=== PATIENT | male | born 1980 | race Caucasian/White ===

== ENCOUNTER 2025-03-03 12:21 | Emergency (ER) | payer OTHER, SELFPAY ==
[2025-03-03 12:29] VITALS: BP 151/88
[2025-03-03 12:44] LABS: % Basophils 0.4 % (0-2); % Eosinophils 1.2 % (0-6); % Immature Granulocytes 0.2 % (0-0.5); % Lymphocytes 27.4 % (20.5-51.1); % Monocytes 12.1 % (1.7-9.3); % Neutrophils 58.7 % (42.2-75.2); Absolute Eosinophils 0.1 10^3/uL (0-0.7); Absolute Lymphocytes 1.4 10^3/uL (1.2-3.4); Absolute Monocytes 0.6 10^3/uL (0.1-0.6); Absolute Neutrophils 3.1 10^3/uL (1.4-6.5); Hematocrit 43.7 % (39.0-52.0); Hemoglobin 14.8 g/dL (13.0-18.0); Mean Corp Hgb Conc. 33.9 g/dL (33.0-37.0); Mean Corpuscular Hgb 30.6 pg (27.0-31.0); Mean Corpuscular Volume 90.5 fL (80.0-94.0); Mean Platelet Volume 10.8 fL (7.4-10.4); Nucleated Red Blood Cells % 0 % (-); Platelet Count 212 10^3/uL (130-400); Red Blood Cell Count 4.83 10^6/uL (4.70-6.10); Red Cell Dist. Width 12.3 % (11.5-14.5); White Blood Cell Count 5.2 10^3/uL (4.8-10.8)
[2025-03-03 12:59] LABS: ALT (SGPT) 26 U/L (0-50); AST (SGOT) 28 U/L (17-59); Albumin 4.3 g/dl (3.5-5.0); Alkaline Phosphatase 76 U/L (38-126); Blood Urea Nitrogen 20 mg/dl (9-20); Calcium 9.5 mg/dl (8.4-10.2); Carbon Dioxide 28 mmol/L (22-30); Chloride 105 mmol/L (98-107); Glucose 98 mg/dl (70-99); Potassium 4.9 mmol/L (3.5-5.1); Sodium 139 mmol/L (135-145); Total Bilirubin 0.9 mg/dl (0.2-1.3); eGFR > 60.00
[2025-03-03 13:10] LABS: Troponin I < 0.012 ng/ml
--- NOTE | 2025-03-03 15:41 | ED.GENMED ---
Addendum entered and electronically signed by Carter Moya DO 03/03/25 16:50:
Update prior to discharge patient resting comfortably pulse ox 100% on room air heart rate in the 50s I encouraged him to follow-up with his PCP
Original Note:
History of Present Illness
General
Chief Complaint: Chest Pain
Source: patient and spouse
Exam Limitations: none
Time Seen by Provider: 03/03/25 15:14
Nursing documentation reviewed up to this point in time: agreed with
History of Present Illness
History of Present Illness:
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
tolerance no rash no calf pain has not taken any meds for for symptoms
Past History
Past History
ED Past Medical History: None
ED Past Surgical History: None
Social History
Tobacco: Non-smoker
Alcohol: Occasional
Drug: None
Personal:
Living: with family
Employment: Employed
Family History
Family History: Negative Early CAD or CAD
Review of Systems
Review of Systems
All Other Systems: Not applicable
Constitutional: Denies fever
Respiratory: Denies trouble breathing
Cardiac: Reports chest pain
ABD/GI: Reports no symptoms
: Reports no symptoms
Skin: Reports no symptoms
Neurological: Reports no symptoms
Phy Exam
Physical Exam
Physical Exam:
Physical Exam
General: no apparent distress, not acutely ill
Neck: No jaundice
Heart: s1/s2 regular rate and rhythm, no murmur. equal radial pulses.
Lungs: no acute respiratory distress. clear bilaterally
Abdomen: Nontender
Neuro: alert and oriented. no focal neurological deficits
Skin: no rash
Psychiatric: well kept. interactive and cooperative
Extremities: no edema. No calf pain
Scores
Heart Score for Chest Pain Patients
STEMI patient?: No
History: Slightly or Non-Suspicious
ECG: Normal
Age: >45 - <65 years
Risk Factors: No Risk Factors
Troponin: </= Normal Limit
Heart Score for Chest Pain Patients: 1
Heart Score Risk: 2.5% MACE over next 6 weeks
Course
Orders/Labs/Results
Orders:
Orders
03/03/25 12:23
Electrocardiogram (*1) Urgent
Reason for Study: Chest Pain
EKG- Treatment ONCE
03/03/25 12:36
Complete Blood Count/With Diff Urgent
Comprehensive Metabolic Panel Urgent
Troponin I Urgent
03/03/25 15:34
CR Chest - 2 Views Urgent
Comment:
Reason For Exam: cp
03/03/25 15:35
Ibuprofen [Motrin] 600 mg PO NOW STA
Abnormal Lab Results
03/03/25
12:36
MPV 10.8 H fL
(7.4-10.4)
Monocytes % 12.1 H %
(1.7-9.3)
03/03/25 12:36
03/03/25 12:36
Vital Signs
Initial and Last Documented VS:
Initial Vital Signs
Temp Pulse Resp BP Pulse Ox
98.5 F 57 16 151/88 100
03/03/25 12:29 03/03/25 12:29 03/03/25 12:29 03/03/25 12:29 03/03/25 12:29
Last Documented Vital Signs
Temp Pulse Resp BP Pulse Ox
98.5 F 45 18 151/88 99
03/03/25 12:29 03/03/25 15:56 03/03/25 15:57 03/03/25 12:29 03/03/25 15:56
MDM/Problems Addressed
Differential Diagnosis Includes:
Muscle strain pneumothorax doubt ACS doubt PE
MDM/Problems Addressed:
Chest pain
*Radiology
Radiology exam reviewed: preliminary read by ED provider
*Pulse Oximetry
Patient hypoxic: no
*EKG
Interpreted by ED Provider?: Yes
Interpretation: normal
Comparison EKG: no comparison EKG present
Heart Rate: 68
Rate: normal
Rhythm: sinus
QRS Pattern: normal QRS
Ischemia: no ischemia
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
Rate: normal
Interpretation: normal
Heart Rate: 70
Rhythm: sinus
*Critical Care Note
Total Time (30-74mins, 75-104mins- exclusive of procedures): Not Applicable
Update Note
Update Note:
Update, nonischemic EKG undetectable troponin no tachycardia PE unlikely chest x-ray noted no obvious pneumothorax will treat with nonsteroidals,
ED Attending Note
-
Portions of this chart may have been created with voice recognition software.� Occasional wrong word or��sound alike� substitutions may have occurred due to the inherent limitations of voice recognition software.
Discharge Plan
Departure
Patient Disposition: Home (Routine Discharge)
Date of Disposition: 03/03/25
Time of Disposition: 16:26
Patient with high blood pressure during this ER visit?: No
Condition: Good
Covid-19: Not Applicable
Discharge Problem:
Chest pain
Instructions: Costochondritis (DC), Chest Pain PCP Follow Up
Prescriptions:
New
ibuprofen 600 mg tablet
600 mg PO Q8H PRN (Reason: Pain) Qty: 30 0RF
metaxalone 800 mg tablet
800 mg PO HSPRN PRN (Reason: muscle pain) Qty: 10 0RF
Referrals:
Roman Pineda DO [Family Provider] - Next open appointment
Interventions
Interventions:
*Risk Screen - Suicide Last Done: 03/03/25 15:57
*General Assessment Last Done: 03/03/25 15:57
*Neglect/Abuse Screening Last Done: 03/03/25 15:57
*ED- Fall Risk Assessment Last Done: 03/03/25 15:57
*ED COVID-19 Vaccine History Last Done: 03/03/25 15:57
ED- Cardiac Assessment Last Done: 03/03/25 15:57
Discharge Date and Time
Print Language: KOREAN
[2025-03-03] MEDS: MOTRIN 600 MG PO (15:51)
[2025-03-03 15:56] VITALS: BP 116/84
[2025-03-03 16:00] VITALS: BP 118/86
== END 2025-03-03 16:53 | disposition home or self-care (01) ==
LOC: EMR 12:21
PROVIDERS: Physician Assistant; EMERGENCY PHYSICIAN Emergency Medicine; FAMILY PHYSICIAN Family Medicine
DX: R07.89 Other chest pain (principal)
CPT/HCPCS: 99283; 71046; 80053; 84484; 85025; 93005